=== PATIENT | male | born 1965 | race Caucasian/White ===

== ENCOUNTER 2018-11-17 14:22 | Emergency (ER) | payer MEDICARE, OTHER ==
[2018-11-17] MEDS: SOD CHLORIDE 0.9% 1,000 ML IV (15:06)
[2018-11-17 15:19] LABS: ANION GAP 11 (5-13); BLOOD UREA NITROGEN 17 mg/dl (7-20); CALCIUM 8.7 mg/dl (8.4-10.2); CARBON DIOXIDE 26 mmol/L (21-31); CHLORIDE 106 mmol/L (97-110); CREATININE 0.78 mg/dl (0.61-1.24); Estimated GFR > 60 mL/min (>60); GLUCOSE 69 mg/dl (70-220); SODIUM 143 mmol/L (135-144)
[2018-11-17] MEDS: LEVETIRACETAM 1000 MG (PMX) 100 ML IVPB (15:19)
== END 2018-11-17 18:29 | disposition home or self-care (01) ==
LOC: E/R 14:22
DX: G40.909 Epilepsy, unspecified, not intractable, without status epilepticus (principal); R40.2112 Coma scale, eyes open, never, at arrival to emergency department; R40.2212 Coma scale, best verbal response, none, at arrival to emergency department; R40.2312 Coma scale, best motor response, none, at arrival to emergency department
CPT/HCPCS: 70450; 80048; 82962; 93005; 96374; 99285-25